=== PATIENT | female | born 1955 | race African-American/Black ===

== ENCOUNTER 2023-08-22 11:46 | Inpatient (IN) | payer OTHER, MEDICAID ==
[~2023-08-22] VITALS: Ht 162.6 cm; Wt 79.5 kg
[2023-08-22] VITALS (8 sets, daily range): BP systolic 139–169; BP diastolic 71–86; PULSE 90–103; RESP 17–24; TEMP 98.3–98.9; O2SAT 90–95
[2023-08-22 13:20] LABS: Basophils # (auto) 0 10 ^3/uL (0-0.2); Eosinophils # (auto) 0.3 10 ^3/uL (0-0.8); Eosinophils % (auto) 3.8 % (0.0-7.0); Lymphocytes # (auto) 1.8 10 ^3/uL (0.4-5.4); Mean Corpuscular Hgb Conc. 28.9 g/dL (32.0-36.0); Monocytes # (auto) 0.7 10 ^3/uL (0-1.3); Nucleated Red Blood Cells % 0.1 %; White Blood Cell 6.7 10^3/uL (4.4-10.8)
[2023-08-22 13:22] LABS: Basophils % (auto) 0.3 % (0.0-2.0); Hematocrit 22.3 % (36.0-46.0); Lymphocytes % (auto) 26.9 % (10.0-50.0); Mean Corpuscular Hemoglobin 19.5 pg (28.0-32.0); Mean Corpuscular Volume 67.6 fL (80.0-100.0); Monocytes % (auto) 11.1 % (0.0-12.0); Neutrophils # (auto) 3.9 10 ^3/uL (1.6-8.6); Neutrophils % (auto) 57.9 % (37.0-80.0); Red Cell Distribution Width 19.2 % (11.8-14.3)
[2023-08-22] MEDS ORDERED: IPRATROPIUM BROM 0.5 MG/2.5ML INH SOL NEB ONE (13:30)
[2023-08-22] MEDS ORDERED: ALBUTEROL SULF 2.5 MG/0.5ML(0.5%) NEB SOLN NEB ONE (13:30)
[2023-08-22] MEDS ORDERED: methylPREDNISolone SOD SUCC 125 MG/2 ML VL IV ONE (13:30)
[2023-08-22 13:31] LABS: Hemoglobin 6.4 g/dL (12.2-16.2)
[2023-08-22 13:42] LABS: Alkaline Phosphatase 163 U/L (46-116); Anion Gap 5 (5-15); Aspartate Aminotransferase < 8 U/L (13-40); Bilirubin, Total 0.2 mg/dL (0.2-1.0); Carbon Dioxide 28 mmol/L (20-30); Chloride 109 mmol/L (98-107); Glucose 92 mg/dL (74-106); Potassium 3.6 mmol/L (3.5-5.1); Sodium 142 mmol/L (136-145); Total Protein 6.7 g/dL (5.7-8.2)
[2023-08-22 13:54] LABS: Alanine Aminotransferase < 9 U/L (7-40); BUN/Creatinine Ratio 7.5 (10.0-20.0); Blood Urea Nitrogen < 5 mg/dL (9-23)
[2023-08-22 14:22] LABS: Base Excess 1.9 mmol/L (-2.0-2.0)
[2023-08-22] MEDS ORDERED: ACETAMINOPHEN 325 MG TAB PO PRN (20:45)
[2023-08-22] MEDS ORDERED: HYDROcodone-ACET 5/325MG TAB PO PRN (20:45)
[2023-08-22] MEDS ORDERED: ACETAMINOPHEN 325 MG TAB PO ONE (20:45)
[2023-08-22] MEDS ORDERED: ONDANSETRON HCL 4 MG/2 ML VIAL IV PRN (20:45)
[2023-08-22 22:03] LABS: INR 1.11 (0.9-1.15); Prothrombin Time 11.6 sec (9.3-11.8)
[2023-08-22] MEDS: PANTOPRAZOLE 40 MG/10 ML VIAL INJ IV SCH (22:09)
[2023-08-22] MEDS: hydrALAZINE HCL 10 MG TAB PO PRN (22:10)
[2023-08-23] VITALS (11 sets, daily range): BP systolic 146–178; BP diastolic 62–82; PULSE 81–102; RESP 16–27; TEMP 97.7–98.2; O2SAT 95–99
[2023-08-23] MEDS ORDERED: IOHEXOL 350 MG/ML 100ML IJ ONE (01:55)
[2023-08-23 03:40] LABS: Hemoglobin 9.4 g/dL (12.2-16.2); Mean Corpuscular Hemoglobin 21.9 pg (28.0-32.0); Red Blood Cells 4.31 10^6/uL (4.0-5.20)
[2023-08-23 03:41] LABS: Hematocrit 31.2 % (36.0-46.0); Mean Corpuscular Hgb Conc. 30.3 g/dL (32.0-36.0); Mean Corpuscular Volume 72.4 fL (80.0-100.0); White Blood Cell 9.4 10^3/uL (4.4-10.8)
[2023-08-23 03:46] LABS: Red Cell Distribution Width 23.8 % (11.8-14.3)
[2023-08-23 03:48] LABS: Basophils % (manual) 0 (0.0-2.0); Blast Cells 0; Metamyelocytes % 0; Myelocytes % 0; Promyelocytes % 0; Reactive Lymphocytes 0
[2023-08-23 06:11] LABS: Anisocytosis Moderate; Band Neutrophils % (manual) 2; Eosinophils % (manual) 1 (0-7); Hypochromia Moderate; Lymphocytes % (manual) 12 (10.0-50.0); Monocytes % (manual) 4 (0-12); Platelet Estimate Adequate
[2023-08-23 06:12] LABS: Large Platelets FEW; Stomatocytes Few; Target Cell D
[2023-08-23] MEDS: ACETAMINOPHEN 325 MG TAB PO PRN (06:43)
[2023-08-23] MEDS: hydrALAZINE HCL 10 MG TAB PO PRN (06:43)
[2023-08-23 07:00] LABS: Eosinophils # (auto) 0 10 ^3/uL (0-0.8); Monocytes # (auto) 0.4 10 ^3/uL (0-1.3); Neutrophils # (auto) 7.9 10 ^3/uL (1.6-8.6)
[2023-08-23 07:03] LABS: Basophils # (auto) 0 10 ^3/uL (0-0.2); Basophils % (auto) 0.2 % (0.0-2.0); Hematocrit 30.4 % (36.0-46.0); Hemoglobin 9.4 g/dL (12.2-16.2); Lymphocytes # (auto) 1.4 10 ^3/uL (0.4-5.4); Lymphocytes % (auto) 14.1 % (10.0-50.0); Mean Corpuscular Hemoglobin 22.1 pg (28.0-32.0); Mean Corpuscular Hgb Conc. 30.8 g/dL (32.0-36.0); Mean Corpuscular Volume 71.8 fL (80.0-100.0); Monocytes % (auto) 4.3 % (0.0-12.0); Neutrophils % (auto) 81.4 % (37.0-80.0); Nucleated Red Blood Cells % 0.2 %; Red Blood Cells 4.24 10^6/uL (4.0-5.20); White Blood Cell 9.8 10^3/uL (4.4-10.8)
[2023-08-23 07:28] LABS: Red Cell Distribution Width 24.1 % (11.8-14.3)
[2023-08-23] MEDS: HYDROcodone-ACET 10/325MG TAB PO PRN (08:05)
[2023-08-23] MEDS: PANTOPRAZOLE 40 MG/10 ML VIAL INJ IV SCH ×2 (10:09→21:06)
[2023-08-23 10:21] LABS: Platelet Estimate Adequate
[2023-08-23 10:22] LABS: Anisocytosis Moderate; Hypochromia Moderate
[2023-08-23 12:00] LABS: Basophils # (auto) 0 10 ^3/uL (0-0.2); Eosinophils # (auto) 0 10 ^3/uL (0-0.8); Hemoglobin 8.8 g/dL (12.2-16.2); Lymphocytes # (auto) 1.6 10 ^3/uL (0.4-5.4); Nucleated Red Blood Cells % 0.1 %; White Blood Cell 12.2 10^3/uL (4.4-10.8)
[2023-08-23 12:02] LABS: Basophils % (auto) 0.2 % (0.0-2.0); Hematocrit 29.4 % (36.0-46.0); Lymphocytes % (auto) 13.2 % (10.0-50.0); Mean Corpuscular Hemoglobin 21.4 pg (28.0-32.0); Mean Corpuscular Hgb Conc. 29.9 g/dL (32.0-36.0); Mean Corpuscular Volume 71.6 fL (80.0-100.0); Monocytes # (auto) 1.1 10 ^3/uL (0-1.3); Monocytes % (auto) 9.3 % (0.0-12.0); Neutrophils # (auto) 9.4 10 ^3/uL (1.6-8.6); Neutrophils % (auto) 77.3 % (37.0-80.0); Red Blood Cells 4.11 10^6/uL (4.0-5.20)
[2023-08-23 12:04] LABS: Red Cell Distribution Width 24.3 % (11.8-14.3)
[2023-08-23 18:28] LABS: Hematocrit 32.6 % (36.0-46.0); Hemoglobin 9.6 g/dL (12.2-16.2); Mean Corpuscular Hemoglobin 21.6 pg (28.0-32.0); Mean Corpuscular Hgb Conc. 29.4 g/dL (32.0-36.0); Mean Corpuscular Volume 73.3 fL (80.0-100.0); Red Blood Cells 4.45 10^6/uL (4.0-5.20); White Blood Cell 13.5 10^3/uL (4.4-10.8)
[2023-08-23] MEDS: FERROUS SULFATE 300 MG/5 ML ORAL LIQ PO SCH (19:12)
[2023-08-23] MEDS ORDERED: LISI10TA34 PO (19:41)
[2023-08-23] MEDS ORDERED: BUSP15TA90 PO (19:41)
[2023-08-23] MEDS ORDERED: HYDR-4072 PO (19:41)
[2023-08-23] MEDS ORDERED: ALBU108A5 INH (19:41)
[2023-08-23] MEDS ORDERED: ATEN25TA PO (19:41)
[2023-08-23] MEDS ORDERED: DULO1CAP6 PO (19:41)
[2023-08-23] MEDS ORDERED: QUET300T24 PO (19:41)
[2023-08-23] MEDS ORDERED: NIFE1TAB31 PO (19:41)
[2023-08-23] MEDS: ALBUTEROL SULF 2.5 MG/0.5ML(0.5%) NEB SOLN NEB PRN (21:13)
[2023-08-23 21:51] LABS: Band Neutrophils % (manual) 0; Basophils % (manual) 0 (0.0-2.0); Blast Cells 0; Eosinophils % (manual) 0 (0-7); Metamyelocytes % 0; Myelocytes % 0; Promyelocytes % 0; Reactive Lymphocytes 0
[2023-08-23 21:52] LABS: Lymphocytes % (manual) 20 (10.0-50.0); Monocytes % (manual) 11 (0-12)
[2023-08-23 21:53] LABS: Anisocytosis Slight; Hypochromia Moderate; Platelet Estimate Adequate
[2023-08-24] VITALS (9 sets, daily range): BP systolic 142–143; BP diastolic 70–73; PULSE 73–99; RESP 16–20; TEMP 97.4–98.6; O2SAT 94–100
[2023-08-24] MEDS: ACETAMINOPHEN 325 MG TAB PO PRN (04:57)
[2023-08-24 06:54] LABS: Chloride 105 mmol/L (98-107); Potassium 3.8 mmol/L (3.5-5.1); Sodium 141 mmol/L (136-145)
[2023-08-24 06:55] LABS: Anion Gap 5 (5-15); Calcium 8.7 mg/dL (8.5-10.1); Carbon Dioxide 31 mmol/L (20-30)
[2023-08-24 07:00] LABS: BUN/Creatinine Ratio 7.8 (10.0-20.0); Basophils # (auto) 0 10 ^3/uL (0-0.2); Blood Urea Nitrogen 5 mg/dL (9-23); Eosinophils # (auto) 0.1 10 ^3/uL (0-0.8); Eosinophils % (auto) 0.5 % (0.0-7.0); Glucose 90 mg/dL (74-106); Hemoglobin 8.5 g/dL (12.2-16.2); Lymphocytes # (auto) 2.4 10 ^3/uL (0.4-5.4)
[2023-08-24 07:02] LABS: Basophils % (auto) 0.3 % (0.0-2.0); Hematocrit 28.6 % (36.0-46.0); Lymphocytes % (auto) 19.7 % (10.0-50.0); Mean Corpuscular Hemoglobin 21.4 pg (28.0-32.0); Mean Corpuscular Hgb Conc. 29.8 g/dL (32.0-36.0); Mean Corpuscular Volume 71.9 fL (80.0-100.0); Monocytes # (auto) 1.3 10 ^3/uL (0-1.3); Monocytes % (auto) 10.4 % (0.0-12.0); Neutrophils # (auto) 8.5 10 ^3/uL (1.6-8.6); Neutrophils % (auto) 69.1 % (37.0-80.0); Nucleated Red Blood Cells % 0.2 %; Red Blood Cells 3.97 10^6/uL (4.0-5.20); White Blood Cell 12.3 10^3/uL (4.4-10.8)
[2023-08-24 07:05] LABS: Red Cell Distribution Width 23.7 % (11.8-14.3)
[2023-08-24 07:07] LABS: INR 1.09 (0.9-1.15); Partial Thromboplastin Time 27.7 SEC (24.5-34.5); Prothrombin Time 11.4 sec (9.3-11.8)
[2023-08-24] MEDS: PANTOPRAZOLE 40 MG/10 ML VIAL INJ IV SCH (08:19)
[2023-08-24] MEDS: FERROUS SULFATE 300 MG/5 ML ORAL LIQ PO SCH (08:19)
[2023-08-24] MEDS ORDERED: ASCORBIC ACID 500 MG TAB PO SCH (10:00)
[2023-08-24] MEDS: HYDROcodone-ACET 10/325MG TAB PO PRN (11:00)
[2023-08-24] MEDS ORDERED: FER300LQ PO (12:21)
[2023-08-24] MEDS ORDERED: ASCO500T11 PO (12:21)
[2023-08-24] MEDS: ALBUTEROL SULF 2.5 MG/0.5ML(0.5%) NEB SOLN NEB PRN ×2 (12:56→14:33)
== END 2023-08-24 15:50 | disposition home or self-care (01) | DRG 812 ==
LOC: ER 11:46 → TELE 20:32 → TELE-CENTR 08-23 18:33
PROVIDERS: ADMIT Nurse Practitioner Family; ATTEND Nurse Practitioner Family
PROC: 30233N1 Transfusion of Nonautologous Red Blood Cells into Peripheral Vein, Percutaneous Approach (ICD-10-PCS; principal; 2023-08-22)
DX: D50.9 Iron deficiency anemia, unspecified (principal); I10 Essential (primary) hypertension; G89.29 Other chronic pain; J44.9 Chronic obstructive pulmonary disease, unspecified; Z80.1 Family history of malignant neoplasm of trachea, bronchus and lung; Z82.49 Family history of ischemic heart disease and other diseases of the circulatory system; Z85.038 Personal history of other malignant neoplasm of large intestine; Z87.891 Personal history of nicotine dependence
CPT/HCPCS: 36415; 36430; 71046; 71275; 80048; 80053; 83605; 83880; 84484; 85007; 85025; 85027; 85379; 85610; 85730; 86850; 86900; 86901; 86920; 93005; 94640; 96374; C9113; G0378

== ENCOUNTER 2024-10-31 02:42 | Inpatient (IN) | payer OTHER, MEDICAID ==
[2024-10-31] VITALS (14 sets, daily range): BP systolic 137–151; BP diastolic 67–82; PULSE 87–101; RESP 16–20; TEMP 98.8–100.5; O2SAT 94–100
[~2024-10-31] VITALS: Ht 160 cm; Wt 72.8 kg
[~2024-10-31 02:42] MED LIST: ALBU108A5 INH; ASCO500T11 PO; ATEN25TA PO; BUSP15TA90 PO; DULO1CAP6 PO; FER300LQ PO; HYDR-4072 PO; LISI10TA34 PO; NIFE1TAB31 PO; QUET300T24 PO
--- NOTE | 2024-10-31 02:55 | ED.PDOC ---
SOB-HPI HPI Comments 69-year-old female who came to ER via EMS for shortness of breath. For the past few days, patient has been having cough with shortness of breath, which is progressively worsening despite nebulizations at home. Does have history of hypertension, COPD, asthma and anemia. Patient was saturating 84% on room air on scene. Chief Complaint: Shortness of Breath Time Seen by MD: 02:54 Primary Care Provider: GEORGE Cee notes: Court Reporter Notes Information Source: Patient, Emergency Med Personnel Mode of Arrival: EMS Severity: Moderate Timing: Days Duration: Intermittent Context: At Rest, With Light Exertion PE Risk Factors: None History of: Asthma, COPD Prehospital treatment: Oxygen Modifying Factors: Nothing Associated Signs and Symptoms: Cough Quality: Tightness Radiation: No Radiation Location: Chest (R), Chest (L) If cough with SOB: Non-Productive Past Medical History PAST MEDICAL HISTORY: Anemia, Asthma, COPD, HTN Surgical History: Denies all surgeries ENVELOPE STUFFER History: Denies all ENVELOPE STUFFER Hx Family History Family History: Reviewed,noncontributory to illness Social History Smoker: Non-Smoker Alcohol: Denies ETOH Use Drugs: Denies Drug Use Lives In: Home Constitutional: denies: chills, diaphoresis, fatigue, fever, malaise, sweats, weakness, others EENTM: denies: blurred vision, double vision, ear bleeding, ear discharge, ear drainage, ear pain, ear ringing, eye pain, eye redness, hearing loss, mouth pain, mouth swelling, nasal discharge, nose bleeding, nose congestion, nose pain, photophobia, tearing, throat pain, throat swelling, voice changes, others Respiratory: reports: cough, SOB at rest, shortness of breath; denies: hemoptysis, orthopnea, SOB with excertion, stridor, wheezing, others Cardiovascular: denies: chest pain, dizzy spells, diaphoresis, Dyspnea on exertion, edema, irregular heart beat, left arm pain, lightheadedness, p alpitations, PND, syncope, others Gastrointestinal: denies: abdomen distended, abdominal pain, blood streaked bowels, constipated, diarrhea, dysphagia, difficulty swallowing, hematemesis, melena, nausea, poor appetite, poor fluid intake, rectal bleeding, rectal pain, vomiting, others Genitourinary: denies: abnormal vagina bleeding, burning, dyspareunia, dysuria, flank pain, frequency, hematuria, incontinence, pain, , vagina discharge, urgency, others Neurological: denies: dizziness, fainting, headache, left sided numbness, left sided weakness, numbness, paresthesia, pre-existing deficit, right sided numbness, right sided weakness, seizure, speech problems, tingling, tremors, weakness, others Musculoskeletal: denies: back pain, gout, joint pain, joint swelling, muscle pain, muscle stiffness, neck pain, others Integumetry: denies: bruises, change in color, change in hair/nails, dryness, laceration, lesions, lumps, rash, wounds, others Allergic/Immunocompromised: denies: Difficulty Healing, Frequent Infections, Hives, Itching, others Hematologic/Lymphatic: denies: anemia, blood clots, easy bleeding, easy bruising, swollen glands, others Endocrine: denies: excessive hunger, excessive sweating, excessive thirst, excessive urination, flushing, intolerance to cold, intolerance to heat, unexplained weight gain, unexplained weight loss, others Psychiatric: denies: anxiety, bipolar disorder, depression, hopeless, panic disorder, schizophrenia, sleepless, suicidal, others Physical Exam General Appearance: No Apparent Distress, Normal HEENT: Normal ENT Inspection, Pharynx Normal, TMs Normal Neck: Full Range of Motion, Non-Tender, Normal, Normal Inspection Respiratory: Chest Non-Tender, Lungs Clear, No Accessory Muscle Use, No Respiratory Distress, Normal Breath Sounds Cardiovascular: No Edema, No JVD, No Murmur, No Gallop, Normal Peripheral Pulses, Regular Rate/Rhythm Breast Exam: Deferred Gastrointestinal: No Organomegaly, Non Tender, No Pulsatile Mass, Normal Bowel Sounds, Soft Genitalia: Deferred Pelvic: Deferred Rectal: Deferred Extremities: No calf tenderness, Normal capillary refill, Normal inspection, Normal range of motion, Non-tender, No pedal edema Musculoskeletal : Apperance: Normal Neurologic: Alert, surgical technologist II-XII nml as Tested, No Motor Deficits, Normal Affect, Normal Mood, No Sensory Deficits Cerebellar Function: Normal Reflexes: Normal Skin: Dry, Normal Color, Warm Lymphatic: No Adenopathy Was a procedure done? Was a procedure done?: No Differential Dx Differential Diagnosis: Asthma, Bronchitis, COPD, Respiratory Distress, Pharyngitis, URI X-Ray, Labs, Meds, VS Vital Signs Date Time Temp Pulse Resp B/P (MAP) Pulse Ox O2 Delivery O2 Flow Rate FiO2 10/31/24 04:02 100.2 10/31/24 03:30 100.1 101 26 142/81 (101) 91 100.1 10/31/24 03:14 20 92 Nasal Cannula* 1 10/31/24 03:02 100.6 10/31/24 02:48 100.5 102 25 153/73 (99) 94 10/31/24 02:46 101 Lab Test 10/31/24 03:55 10/31/24 03:05 10/31/24 03:00 Range/Units Troponin I High Sensitivity 5 5 </=34 ng/L Influenza Type A Antigen Positive Negative Influenza Type B Antigen Negative Negative SARS-CoV-2 Antigen (Rapid) Negative NEGATIVE White Blood Count 6.9 4.4-10.8 10^3/uL Red Blood Count 4.90 4.0-5.20 10^6/uL Hemoglobin 13.1 12.2-16.2 g/dL Hematocrit 41.3 36.0-46.0 % Mean Corpuscular Volume 84.2 80.0-100.0 fL Mean Corpuscular Hemoglobin 26.7 L 28.0-32.0 pg Mean Corpuscular Hemoglobin Concent 31.7 L 32.0-36.0 g/dL Red Cell Distribution Width 14.6 H 11.8-14.3 % Platelet Count 231 140-450 10^3/uL Mean Platelet Volume 7.5 6.9-10.8 fL Neutrophils (%) (Auto) 74.2 37.0-80.0 % Lymphocytes (%) (Auto) 9.9 L 10.0-50.0 % Monocytes (%) (Auto) 15.5 H 0.0-12.0 % Eosinophils (%) (Auto) 0.1 0.0-7.0 % Basophils (%) (Auto) 0.3 0.0-2.0 % Neutrophils # (Auto) 5.1 1.6-8.6 10 ^3/uL Lymphocytes # (Auto) 0.7 0.4-5.4 10 ^3/uL Monocytes # (Auto) 1.1 0-1.3 10 ^3/uL Eosinophils # (Auto) 0 0-0.8 10 ^3/uL Basophils # (Auto) 0 0-0.2 10 ^3/uL Nucleated Red Blood Cells 0.1 % Sodium Level 136 136-145 mmol/L Potassium Level 4.1 3.5-5.1 mmol/L Chloride Level 101 98-107 mmol/L Carbon Dioxide Level 27 20-31 mmol/L Anion Gap 8 5-15 Blood Urea Nitrogen 7 L 9-23 mg/dL Creatinine 0.70 0.550-1.02 mg/dL Glomerular Filtration Rate Calc 94 >90 mL/min BUN/Creatinine Ratio 10.0 10.0-20.0 Serum Glucose 108 H 74-106 mg/dL Lactic Acid Level Pending Calcium Level 10.3 8.7-10.4 mg/dL Magnesium Level 2.0 1.6-2.6 mg/dL Total Bilirubin 0.2 0.2-1.0 mg/dL Aspartate Amino Transferase (AST) 30 13-40 U/L Alanine Aminotransferase (ALT) 15 7-40 U/L Alkaline Phosphatase 177 H 46-116 U/L B-Type Natriuretic Peptide 277.88 0-100 pg/mL Total Protein 7.8 5.7-8.2 g/dL Albumin 4.7 3.2-4.8 g/dL Current Medications Medications (Trade) Dose Ordered Sig/Ranjith Route Start Time Stop Time Status Last Admin Albuterol (Ventolin Medneb) 5 mg ONCE ONCE [facility] 10/31/24 03:00 10/31/24 03:01 ID 10/31/24 03:19 Ipratropium [place] (Atrovent Medneb) 0.5 mg ONCE ONCE [facility] 10/31/24 03:00 10/31/24 03:01 ID 10/31/24 03:19 Acetaminophen (Tylenol Tablet) 1,000 mg ONCE ONCE PO 10/31/24 03:00 10/31/24 03:01 DC 10/31/24 03:02 Time of 1ST Reevaluation: 02:52 Reevaluation 1ST: Unchanged Time of 2ND Reevaluation: 05:03 Reevaluation 2ND: Unchanged (requiring oxygen, will admit for supportive care and further workup) Patient Education/Counseling: Diagnosis, Treatment Family Education/Counseling: No Family Present Departure 1 Departure Time of Disposition: 05:02 Impression: Primary Impression: Respiratory failure with hypoxia Additional Impression: Influenza A Disposition: 09 ADMITTED INPATIENT Condition: Guarded Critical Care Note Critical Care Time?: Yes (35 min-critical care time only) Critical care comment: Shortness of breath Stability Stability form required: No Heart Score Heart Score: Heart Score Response (Comments) Value History Moderate Suspicious 1 EKG Repolarization Disturb 1 Age >65 2 Risk Factors 1 or 2 risk factors 1 Troponin Normal limit 0 Total 5 I personally scribed for CHRISTINA YBARRA MD ([email or web address]) on 10/31/24 at 02:55. Electronically submitted by Luisito Martinez ([email or web address]). CHRISTINA YBARRA MD Oct 31, 2024 02:55
[2024-10-31] MEDS: ACETAMINOPHEN 325 MG TAB PO ONE (03:02)
[2024-10-31] MEDS: IPRATROPIUM BROM 0.5 MG/2.5ML INH SOL HHN ONE (03:19)
[2024-10-31] MEDS: ALBUTEROL SULF 2.5 MG/0.5ML(0.5%) NEB SOLN HHN ONE (03:19)
[2024-10-31 03:21] LABS: Basophils # (auto) 0 10 ^3/uL (0-0.2); Basophils % (auto) 0.3 % (0.0-2.0); Eosinophils # (auto) 0 10 ^3/uL (0-0.8); Lymphocytes # (auto) 0.7 10 ^3/uL (0.4-5.4); Platelet Count (auto) 231 10^3/uL (140-450); White Blood Cell 6.9 10^3/uL (4.4-10.8)
[2024-10-31 03:22] LABS: Eosinophils % (auto) 0.1 % (0.0-7.0); Hematocrit 41.3 % (36.0-46.0); Hemoglobin 13.1 g/dL (12.2-16.2); Lymphocytes % (auto) 9.9 % (10.0-50.0); Mean Corpuscular Hemoglobin 26.7 pg (28.0-32.0); Mean Corpuscular Hgb Conc. 31.7 g/dL (32.0-36.0); Mean Corpuscular Volume 84.2 fL (80.0-100.0); Monocytes # (auto) 1.1 10 ^3/uL (0-1.3); Monocytes % (auto) 15.5 % (0.0-12.0); Neutrophils # (auto) 5.1 10 ^3/uL (1.6-8.6); Neutrophils % (auto) 74.2 % (37.0-80.0); Nucleated Red Blood Cells % 0.1 %; Red Cell Distribution Width 14.6 % (11.8-14.3)
[2024-10-31 03:36] LABS: COVID19 ANTIGEN SOFIA FIA NEGATIVE (NEGATIVE)
[2024-10-31 03:37] LABS: Rapid Influenza B Negative (Negative)
[2024-10-31 03:39] LABS: Rapid Influenza A Positive (Negative)
[2024-10-31 03:48] LABS: Alanine Aminotransferase 15 U/L (7-40); Albumin 4.7 g/dL (3.2-4.8); Anion Gap 8 (5-15); Aspartate Aminotransferase 30 U/L (13-40); Calcium 10.3 mg/dL (8.7-10.4); Carbon Dioxide 27 mmol/L (20-31); Chloride 101 mmol/L (98-107); Potassium 4.1 mmol/L (3.5-5.1); Total Protein 7.8 g/dL (5.7-8.2)
[2024-10-31 03:50] LABS: Alkaline Phosphatase 177 U/L (46-116); Bilirubin, Total 0.2 mg/dL (0.2-1.0); Blood Urea Nitrogen 7 mg/dL (9-23); Glucose 108 mg/dL (74-106); Sodium 136 mmol/L (136-145)
[2024-10-31] MEDS: cefTRIAXone 1GM/50ML D5W 50 ML IV ONE (04:45)
--- NOTE | 2024-10-31 05:08 | DVH ---
CHEST RADIOGRAPH Indication: sob Technique: Single frontal view of the chest was obtained COMPARISON: None FINDINGS: Lines and Tubes: None Lungs: Increased interstitial prominence. Pleura: No effusion. No pneumothorax. Cardiomediastinal contours: Unremarkable Bones: Unremarkable IMPRESSION: Mild congestion
[2024-10-31] MEDS ORDERED: NITROGLYCERIN 0.4 MG SL TAB SL PRN (06:00)
[2024-10-31] MEDS ORDERED: ONDANSETRON HCL 4 MG/2 ML VIAL IV PRN (06:00)
[2024-10-31] MEDS ORDERED: DOCUSATE SOD 100 MG CAP PO PRN (06:00)
[2024-10-31] MEDS ORDERED: MORPHINE SULFATE INJ 2 MG/ml SYRG IV PRN (06:00)
[2024-10-31] MEDS: IPRATROPIUM BROM 0.5 MG/2.5ML INH SOL NEB SCH (06:42)
[2024-10-31] MEDS: ALBUTEROL SULF 2.5 MG/0.5ML(0.5%) NEB SOLN NEB SCH (06:42)
[2024-10-31] MEDS: SODIUM CHLORIDE 0.9% 1,000 ML IV SCH (06:45)
--- NOTE | 2024-10-31 06:59 | DVHHP2 ---
RAUL RODRIGUEZ LOCAL [employer]IVER 10/31/24 0659: History of Present Illness Reason for Visit: Generalized bodyaches History of Present Illness 69-year-old female Past medical history of hypertension, COPD, asthma presents with generalized bodyaches, cough, congestion, And shortness of breath Worsening times one week. Patient also endorsed the generalized weakness. When EMS encountered the patient her oxygen saturation was 84% On room air. Patient daughter endorsed she had tried multiple Nebulizer treatments with no relief. At this time patient denies business, chest pain, nausea, vomiting,Abdominal pain,Diarrhea, hematemesis, hematochezia. endorsed soft bowel movements. Cardiovascular: CAD, HTN Pulmonary: Asthma, COPD Smoke: 1 pack per day ALCOHOL: none Drugs: None Lives: with Family Review of Systems Constitutional: Yes: Weakness, Malaise; No: Fever, Chills, Sweats, Other Eyes: No: Pain, Vision change, Conjunctivae inflammation, Eyelid inflammation, Other, Redness ENT: No: Ear pain, Ear discharge, Nose pain, Nose discharge, Nose congestion, Mouth pain, Mouth swelling, Throat pain, Throat swelling, Other Respiratory: Cough, Shortness of breath; No: Dry, SOB with excertion, Wheezing, Hemoptysis, Pleuritic Pain, Sputum, Wheezing, Other Cardiovascular: No: Chest Pain, Palpitations, Orthopnea, Paroxysmal Noc. Dyspnea, Edema, Lt Headedness, Other Gastrointestinal: No: Nausea, Vomiting, Abdominal Pain, Diarrhea, Constipation, Melena, Hematochezia, Other Genitourinary: No Dysuria, No Frequency, No Incontinence, No Hematuria, No Retention, No Other Musculoskeletal: No: other, neck pain, shoulder pain, arm pain, back pain, hand pain, leg pain, foot pain Skin: No: Rash, Lesions, Jaundice, Bruising, Other Neurological: No: Weakness, Numbness, Incoordination, Change in speech, Confusion, Seizures, Other Allergies: Coded Allergies: NO KNOWN ALLERGIES (Unverified , 08/22/23) Medications Current Medications Medications Dose Ordered Sig/Ranjith Route Start Time Stop Time Status Last Admin Dose Admin Sodium Chloride 1,000 ml @ 75 mls/hr [id number] IV 10/31/24 06:00 10/31/24 19:19 Docusate Sodium 100 mg BIDPRN PRN PO 10/31/24 06:00 Acetaminophen 650 mg Q6HP PRN PO 10/31/24 06:00 Ondansetron HCl 4 mg Q4HP PRN IV 10/31/24 06:00 Enoxaparin Sodium 40 mg DAILY SC 10/31/24 10:00 Nitroglycerin 0.4 mg Q5MINP PRN SL 10/31/24 06:00 Morphine Sulfate 2 mg Q30M PRN IV 10/31/24 06:00 Albuterol 2.5 mg Q6HR NEB 10/31/24 06:00 10/31/24 06:42 2.5 MG Ipratropium [place] 0.5 mg Q6HR NEB 10/31/24 06:00 10/31/24 06:42 0.5 MG Nifedipine 30 mg DAILY PO 10/31/24 10:00 Guaifenesin/ Dextromethorphan 10 ml Q4HPRN PRN PO 10/31/24 06:00 Oseltamivir Phosphate 30 mg BID PO 11/01/24 10:00 11/05/24 10:01 Exam Vital Signs Vital Signs Date Time Temp Pulse Resp B/P (MAP) Pulse Ox O2 Delivery O2 Flow Rate FiO2 10/31/24 06:51 93 18 98 10/31/24 06:46 100.3 137/67 4.0 36 100.3 10/31/24 06:45 Nasal Cannula General Appearance: Alert, Oriented X3, Cooperative HEENT: Atraumatic, PERRLA, EOMI Respiratory: Clear to auscultation, Other (Diminished bilaterally) Cardiovascular: Regular rate, Normal S1, Normal S2 Abdominal: Normal bowel sounds, Soft, No tenderness Extremities: No cyanosis, No edema Skin: No rashes, No breakdown Neuro: Normal speech, Strength at 5/5 X4 ext Psych/Mental Status: Mental status NL, Mood NL Labs/Xrays Labs Test 10/31/24 05:48 10/31/24 03:55 10/31/24 03:05 10/31/24 03:00 Range/Units Lactic Acid Level 1.2 0.4-2.0 mmol/L Troponin I High Sensitivity 5 </=34 ng/L Influenza Type A Antigen Positive Negative Influenza Type B Antigen Negative Negative SARS-CoV-2 Antigen (Rapid) Negative NEGATIVE White Blood Count 6.9 4.4-10.8 10^3/uL Red Blood Count 4.90 4.0-5.20 10^6/uL Hemoglobin 13.1 12.2-16.2 g/dL Hematocrit 41.3 36.0-46.0 % Mean Corpuscular Volume 84.2 80.0-100.0 fL Mean Corpuscular Hemoglobin 26.7 L 28.0-32.0 pg Mean Corpuscular Hemoglobin Concent 31.7 L 32.0-36.0 g/dL Red Cell Distribution Width 14.6 H 11.8-14.3 % Platelet Count 231 140-450 10^3/uL Mean Platelet Volume 7.5 6.9-10.8 fL Neutrophils (%) (Auto) 74.2 37.0-80.0 % Lymphocytes (%) (Auto) 9.9 L 10.0-50.0 % Monocytes (%) (Auto) 15.5 H 0.0-12.0 % Eosinophils (%) (Auto) 0.1 0.0-7.0 % Basophils (%) (Auto) 0.3 0.0-2.0 % Neutrophils # (Auto) 5.1 1.6-8.6 10 ^3/uL Lymphocytes # (Auto) 0.7 0.4-5.4 10 ^3/uL Monocytes # (Auto) 1.1 0-1.3 10 ^3/uL Eosinophils # (Auto) 0 0-0.8 10 ^3/uL Basophils # (Auto) 0 0-0.2 10 ^3/uL Nucleated Red Blood Cells 0.1 % Sodium Level 136 136-145 mmol/L Potassium Level 4.1 3.5-5.1 mmol/L Chloride Level 101 98-107 mmol/L Carbon Dioxide Level 27 20-31 mmol/L Anion Gap 8 5-15 Blood Urea Nitrogen 7 L 9-23 mg/dL Creatinine 0.70 0.550-1.02 mg/dL Glomerular Filtration Rate Calc 94 >90 mL/min BUN/Creatinine Ratio 10.0 10.0-20.0 Serum Glucose 108 H 74-106 mg/dL Calcium Level 10.3 8.7-10.4 mg/dL Magnesium Level 2.0 1.6-2.6 mg/dL Total Bilirubin 0.2 0.2-1.0 mg/dL Aspartate Amino Transferase (AST) 30 13-40 U/L Alanine Aminotransferase (ALT) 15 7-40 U/L Alkaline Phosphatase 177 H 46-116 U/L B-Type Natriuretic Peptide 277.88 0-100 pg/mL Total Protein 7.8 5.7-8.2 g/dL Albumin 4.7 3.2-4.8 g/dL Assessment/Plan Assessment/Plan Acute on chronic respiratory failure with hypoxia COPD exacerbation Influence a positive Hypertension Plan Admit telemetry Consult pulmonology. Bronchodilators. As needed supplemental O2 to maintain O2 saturation greater Than 93%. RT monitoring. Oral Tamiflu. As needed anti-hypertensive for optimal BP management. Continue home medication after medication reconciliation has been completed. Physical therapy valuation GI ppx Protonix / DVT PPX Lovenox Plan discussed with: Patient, Daughter My Orders Orders - RAUL RODRIGUEZ NP Procedure Category Date Status Time Admit ADMIT 10/31/24 Transmitted 05:47 Code Status CODE 10/31/24 Transmitted 05:47 Vital Signs [facility] 10/31/24 In Process 05:47 Review Orders With NATALIE 10/31/24 In Process Adm. 05:47 Encourage Activity As [facility] 10/31/24 In Process Tolerate 05:47 Consistent DIET 10/31/24 Transmitted Carb(Ccho)Diabetes Breakfast Sodium Chloride 0.9% PHA 10/31/24 In Process 06:00 Oxygen By Face Mask RT 10/31/24 Transmitted 05:47 Docusate Sodium PHA 10/31/24 In Process Capsule (Colace 06:00 Acetaminophen Tablet PHA 10/31/24 In Process (Tylenol Tablet) 06:00 Notify Of Changes [facility] 10/31/24 In Process From Base 05:47 Advance Directive [facility] 10/31/24 In Process 05:47 Basic Metabolic Panel LAB 11/01/24 Verified 05:00 Basic Metabolic Panel LAB 11/02/24 Verified 05:00 Basic Metabolic Panel LAB 11/03/24 Verified 05:00 Basic Metabolic Panel LAB 11/04/24 Verified 05:00 Basic Metabolic Panel LAB 11/05/24 Verified 05:00 Complete Blood Count LAB 11/01/24 Verified 05:00 Complete Blood Count LAB 11/02/24 Verified 05:00 Complete Blood Count LAB 11/03/24 Verified 05:00 Complete Blood Count LAB 11/04/24 Verified 05:00 Complete Blood Count LAB 11/05/24 Verified 05:00 Patient Condition ORDERS 10/31/24 Transmitted 05:47 Allergies [facility] 10/31/24 In Process 05:47 Ondansetron Hcl PHA 10/31/24 In Process (Zofran) 06:00 Enoxaparin Sodium PHA 10/31/24 In Process (Lovenox) 10:00 Sequential NATALIE 10/31/24 In Process Compression Device Nitroglycerin PHA 10/31/24 In Process Sublingual (Ntrostat 06:00 Morphine Sulfate PHA 10/31/24 In Process Injection 06:00 Stat Ekg For Chest NATALIE 10/31/24 In Process Pain 05:47 Notify Of Changes NATALIE 10/31/24 In Process From Base 05:47 Educational Technology Coordinator For NATALIE 10/31/24 In Process 24 Hours 05:47 Emergency Dysrhythmia NATALIE 10/31/24 In Process Protocol 05:47 Rhythm Strips Once NATALIE 10/31/24 In Process Every Shift 05:47 Oxygen By Nasal RT 10/31/24 Transmitted Cannula 05:47 Oseltamivir 75mg PHA 10/31/24 In Process Capsule (Tamiflu 75mg 10:00 Albuterol Medneb PHA 10/31/24 In Process (Ventolin Medneb) 06:00 Ipratropium Medneb PHA 10/31/24 In Process (Atrovent Medneb) 06:00 Nifedipine Er PHA 10/31/24 In Process (Procardia Xl 10:00 *Consult CONS 10/31/24 Transmitted / 05:47 Guaifenesin-Dextromet PHA 10/31/24 In Process Liquid (Robitussin 06:00 Oseltamivir 30mg PHA 11/01/24 In Process Capsule (Tamiflu 30mg 10:00 Date of Service: Oct 31, 2024 Billing Provider: CARLA ABDULLAHI MD Common Visit Codes: NOT BILLABLE CARLA ABDULLAHI MD 10/31/24 1527: Review of Systems Allergies: Coded Allergies: NO KNOWN ALLERGIES (Unverified , 08/22/23) Additional Comments Additional Comments Additional Comments 69-YEAR-OLD FEMALE WITH A KNOWN HISTORY OF COPD, CHRONIC ACTIVE TOBACCO USE DISORDER INITIALLY PRESENTED TO THE HOSPITAL WITH THE INCREASING SHORTNESS A BREATH FOUND TO HAVE 1. ACUTE HYPOXIC RESPIRATORY FAILURE SECONDARY TO ACUTE COPD EXACERBATION 2. ACUTE COPD EXACERBATION 3. INFLUENZA A POSITIVE 4. CHRONIC ACTIVE TOBACCO USE DISORDER -TOBACCO CESSATION COUNSELING, IV SOLU-MEDROL, TAMIFLU O2 SUPPLEMENTATION BREATHING TREATMENT DISCHARGE PLAN RAUL RODRIGUEZ NP Oct 31, 2024 06:59 CARLA ABDULLAHI MD Oct 31, 2024 15:27
[2024-10-31] MEDS: AZITHROMYCIN 500MG/ 250ML 250 ML IV ONE (07:00)
--- NOTE | 2024-10-31 09:13 | DVHINCON2 ---
Date of service: Oct 31, 2024 Referring Physician Rhett Rivero NP Reason for Consultation Acute on chronic hypoxic respiratory failure, COPD exacerbation, influenza A History of Present Illness A 69-year-old woman with past medical history of COPD, asthma, CAD, and hypertension who presents today with generalized body aches, cough, congestion, and shortness of breath, onset 1 week, worsening sx. Patient also complains of generalized weakness. Per EMS, her oxygen saturation was 84% on room air. Daughter states pt had tried multiple nebulizer treatments with no relief. Patient tested positive for influenza A. She was thus admitted for further care and pulmonary consultation is requested for evaluation and management due to the above findings. Review of Systems: 14-point review of systems negative unless otherwise noted above. Past Medical History: COPD, asthma, CAD, and hypertension Past Surgical History: None Medications: Reviewed. Allergies: No known drug allergies. Family History: Lung cancer and hypertension. Social History: Smoker, smokes 1 pack per day. No alcohol or illicit drug use. Family History: FH: lung cancer G8 MOTHER Hypertension G8 SISTER Allergies: Coded Allergies: NO KNOWN ALLERGIES (Unverified , 08/22/23) Home Meds Active Scripts Ferrous Sulfate (Ferrous Sulfate) 300 Mg/5 Ml Sr, 300 MG PO DAILY@DINNER, #1 SYP 1 Refill Prov:MANDY MEJIA MD 08/24/23 Ascorbic Acid (VITAMIN C TABLET) 500 Mg Tb, 500 MG PO DAILY, #30 TAB Prov:MANDY MEJIA MD 08/24/23 Reported Medications Albuterol Sulfate (Albuterol Sulfate Hfa) 108 Mcg/Act Aer, 2 PUFF INH QID 08/23/23 Quetiapine Fumerate (QUETIAPINE FUMARATE) 300 Mg Tab, 1 TAB PO 08/23/23 Duloxetine HCl (Duloxetine HCl) 60 Mg Cap, 1 CAP PO DAILY 08/23/23 Buspirone HCl (Buspirone Hydrochloride) 15 Mg Tab, 1 TAB PO BID 08/23/23 Hydrocodone-Acetaminophen (Hydrocodone/Acetaminophen 10-325 mg) 1 Tab Tab, 1 TAB PO QID PRN for PAIN SCALE 7 THRU 10 08/23/23 Nifedipine (Nifedipine Er) 30 Mg Tab, 30 MG PO DAILY 08/23/23 Lisinopril (Lisinopril) 10 Mg Tab, 1 TAB PO DAILY 08/23/23 Atenolol (Atenolol) 25 Mg Tab, 1 TAB PO DAILY 08/23/23 Current Medications Current Medications Medications (Trade) Dose Ordered Sig/Ranjith Route PRN Reason Start Time Stop Time Status Last Admin Sodium Chloride 1,000 ml @ 75 mls/hr [id number] IV 10/31/24 06:00 10/31/24 19:19 10/31/24 06:45 Docusate Sodium (Colace Capsule) 100 mg BIDPRN PRN PO FOR CONSTIPATION 10/31/24 06:00 Acetaminophen (Tylenol Tablet) 650 mg Q6HP PRN PO PAIN SCALE 1-3 OR TEMP>100.4 10/31/24 06:00 Ondansetron HCl (Zofran) 4 mg Q4HP PRN IV NAUSEA / VOMITING 10/31/24 06:00 Enoxaparin Sodium (Lovenox) 40 mg DAILY SC 10/31/24 10:00 Nitroglycerin (Ntrostat Sublingual) 0.4 mg Q5MINP PRN SL FOR CHEST PAIN 10/31/24 06:00 Morphine Sulfate 2 mg Q30M PRN IV FOR CHEST PAIN 10/31/24 06:00 Albuterol (Ventolin Medneb) 2.5 mg Q6HR NEB 10/31/24 06:00 10/31/24 06:42 Ipratropium [place] (Atrovent Medneb) 0.5 mg Q6HR NEB 10/31/24 06:00 10/31/24 06:42 Nifedipine (Procardia Xl (Time-Release)) 30 mg DAILY PO 10/31/24 10:00 Guaifenesin/ Dextromethorphan (Robitussin-Dm Liquid) 10 ml Q4HPRN PRN PO cough 10/31/24 06:00 Oseltamivir Phosphate (Tamiflu 30MG Capsule) 30 mg BID PO 11/01/24 10:00 11/05/24 10:01 Vital Signs Vital Signs Date Time Temp Pulse Resp B/P (MAP) Pulse Ox O2 Delivery O2 Flow Rate FiO2 10/31/24 06:51 93 18 98 10/31/24 06:46 100.3 137/67 4.0 36 100.3 10/31/24 06:45 Nasal Cannula Physical Exam Gen.: Patient lying in bed in no apparent distress. On supplemental oxygen. Head: Normocephalic, atraumatic. Eyes: EOMI/PERRLA. Ears: Normal hearing. Normal anatomy. Neck/trachea: Trachea midline, supple. Nose: Normal external anatomy. Mouth: Moist mucous membranes. Chest: Decreased air entry bilaterally. No wheezing or rhonchi. Cardiovascular: Positive S1, positive S2. Regular rate and rhythm. Abdomen: Positive bowel sounds in all 4 quadrants. Soft, non-tender, non- distended. : Deferred. Rectal: Deferred. Skin: Warm, dry. Intact. Extremities: 2+ radial pulses bilaterally. No lower extremity edema. Neuro: Awake, alert, oriented x3. No gross motor or sensory deficits. Cranial nerves II through XII intact. Gait not assessed. Labs/Diagnostic Data Labs Test 10/31/24 05:48 10/31/24 03:55 10/31/24 03:05 10/31/24 03:00 Range/Units Lactic Acid Level 1.2 0.4-2.0 mmol/L Troponin I High Sensitivity 5 </=34 ng/L Influenza Type A Antigen Positive Negative Influenza Type B Antigen Negative Negative SARS-CoV-2 Antigen (Rapid) Negative NEGATIVE White Blood Count 6.9 4.4-10.8 10^3/uL Red Blood Count 4.90 4.0-5.20 10^6/uL Hemoglobin 13.1 12.2-16.2 g/dL Hematocrit 41.3 36.0-46.0 % Mean Corpuscular Volume 84.2 80.0-100.0 fL Mean Corpuscular Hemoglobin 26.7 L 28.0-32.0 pg Mean Corpuscular Hemoglobin Concent 31.7 L 32.0-36.0 g/dL Red Cell Distribution Width 14.6 H 11.8-14.3 % Platelet Count 231 140-450 10^3/uL Mean Platelet Volume 7.5 6.9-10.8 fL Neutrophils (%) (Auto) 74.2 37.0-80.0 % Lymphocytes (%) (Auto) 9.9 L 10.0-50.0 % Monocytes (%) (Auto) 15.5 H 0.0-12.0 % Eosinophils (%) (Auto) 0.1 0.0-7.0 % Basophils (%) (Auto) 0.3 0.0-2.0 % Neutrophils # (Auto) 5.1 1.6-8.6 10 ^3/uL Lymphocytes # (Auto) 0.7 0.4-5.4 10 ^3/uL Monocytes # (Auto) 1.1 0-1.3 10 ^3/uL Eosinophils # (Auto) 0 0-0.8 10 ^3/uL Basophils # (Auto) 0 0-0.2 10 ^3/uL Nucleated Red Blood Cells 0.1 % Sodium Level 136 136-145 mmol/L Potassium Level 4.1 3.5-5.1 mmol/L Chloride Level 101 98-107 mmol/L Carbon Dioxide Level 27 20-31 mmol/L Anion Gap 8 5-15 Blood Urea Nitrogen 7 L 9-23 mg/dL Creatinine 0.70 0.550-1.02 mg/dL Glomerular Filtration Rate Calc 94 >90 mL/min BUN/Creatinine Ratio 10.0 10.0-20.0 Serum Glucose 108 H 74-106 mg/dL Calcium Level 10.3 8.7-10.4 mg/dL Magnesium Level 2.0 1.6-2.6 mg/dL Total Bilirubin 0.2 0.2-1.0 mg/dL Aspartate Amino Transferase (AST) 30 13-40 U/L Alanine Aminotransferase (ALT) 15 7-40 U/L Alkaline Phosphatase 177 H 46-116 U/L B-Type Natriuretic Peptide 277.88 0-100 pg/mL Total Protein 7.8 5.7-8.2 g/dL Albumin 4.7 3.2-4.8 g/dL Assessment Impression: Acute on chronic hypoxic respiratory failure COPD exacerbation Influenza A positive Hypertension Nicotine dependence Plan: Supplemental oxygen Titrate to keep O2 sats above 92%. Start Tamiflu course Continue bronchodilators. Continue antibiotics Monitor blood pressure Monitor renal function. Monitor electrolytes. Supplement as necessary. Monitor ins and outs. Smoking cessation discussed for greater than 10 minutes. DVT prophylaxis. Prognosis: Poor given patient's multiple co-morbidities. Rest of plan per hospitalist and other consultants. Thank you, Rhett Rivero NP, for allowing me to participate in this patient's care. Further recommendations will depend on the patient's clinical course. Please do not hesitate to contact me if you have any questions or concerns. This medical document was created using an electronic medical record system with Dragon computerized dictation system. Although these documentations are being carefully reviewed, there may still be some phonetic and typographical changes. The errors are purely typographical, due to imperfection on the software program, and do not reflect any compromise in the patient's medical care. Plan discussed with: Patient, Other (MICHELLE Germain/Ana, [employer] Mat/) TAYLOR MEDRANO MD Oct 31, 2024 09:13
[2024-10-31] MEDS: NIFEdipine ER 30 MG TAB PO SCH (10:05)
[2024-10-31] MEDS: ENOXAPARIN SOD 40 MG/0.4 ML SYRINGE SC SCH (10:05)
[2024-10-31] MEDS: OSELTAMIVIR 75 MG CAP PO ONE (10:40)
[2024-10-31] MEDS: guaiFENesin-DM 100/10mg/5ml SYR PO PRN (10:41)
[2024-10-31] MEDS: ACETAMINOPHEN 325 MG TAB PO PRN (17:02)
[2024-10-31] MEDS: MELATONIN 5 MG TAB PO SCH (22:00)
[2024-11-01] VITALS (17 sets, daily range): BP systolic 101–137; BP diastolic 55–64; PULSE 85–101; RESP 16–21; TEMP 98–99.6; O2SAT 88–100
[2024-11-01 06:05] LABS: Anion Gap 6 (5-15); Carbon Dioxide 28 mmol/L (20-31); Chloride 101 mmol/L (98-107); Potassium 3.7 mmol/L (3.5-5.1)
[2024-11-01 06:06] LABS: Calcium 9.5 mg/dL (8.7-10.4)
[2024-11-01 06:11] LABS: BUN/Creatinine Ratio 12.7 (10.0-20.0); Glucose 84 mg/dL (74-106)
[2024-11-01 06:14] LABS: Blood Urea Nitrogen 8 mg/dL (9-23); Sodium 135 mmol/L (136-145)
[2024-11-01 06:35] LABS: Hematocrit 40.5 % (36.0-46.0); Mean Corpuscular Hemoglobin 26.8 pg (28.0-32.0); Mean Corpuscular Volume 83.7 fL (80.0-100.0); Platelet Count (auto) 226 10^3/uL (140-450); Red Blood Cells 4.84 10^6/uL (4.0-5.20); Red Cell Distribution Width 14.3 % (11.8-14.3)
[2024-11-01 07:06] LABS: Basophils % (manual) 0 (0.0-2.0); Blast Cells 0; Eosinophils % (manual) 0 (0-7); Metamyelocytes % 0; Myelocytes % 0; Promyelocytes % 0; Reactive Lymphocytes 0
[2024-11-01 09:39] LABS: Band Neutrophils % (manual) 3; Lymphocytes % (manual) 22 (10.0-50.0)
[2024-11-01 09:40] LABS: Monocytes % (manual) 13 (0-12); RBC Morphology Normal
[2024-11-01 10:09] LABS: Platelet Estimate Adequate
[2024-11-01] MEDS: OSELTAMIVIR 30 MG CAP PO SCH (10:31)
--- NOTE | 2024-11-01 16:38 | DVHPN2 ---
Subjective Overnight events noted. Patient does not feel much better yet. Reviewed: Care Plan Changes from previous H/P or p: No Changes Eyes: No Pain, No Vision change, No Conjunctivae inflammation, No Eyelid inflammation, No Other, No Redness ENT: No Ear pain, No Ear discharge, No Nose pain, No Nose discharge, No Nose congestion, No Mouth pain, No Mouth swelling, No Throat pain, No Throat swelling, No Other Cardiovascular: No Chest Pain, No Palpitations, No Orthopnea, No Paroxysmal Noc. Dyspnea, No Edema, No Lt Headedness, No Other Respiratory: Cough; No Dry; Shortness of breath; No SOB with excertion, No Wheezing, No Hemoptysis, No Pleuritic Pain, No Sputum, No Other Gastrointestinal: No Nausea, No Vomiting, No Abdominal Pain, No Diarrhea, No Constipation, No Melena, No Hematochezia, No Other Genitourinary: No Dysuria, No Frequency, No Incontinence, No Hematuria, No Retention, No Other Musculoskeletal: No other, No neck pain, No shoulder pain, No arm pain, No back pain, No hand pain, No leg pain, No foot pain Skin: No Rash, No Lesions, No Jaundice, No Bruising, No Other Objective Vitals Vital Signs Date Time Temp Pulse Resp B/P (MAP) Pulse Ox O2 Delivery O2 Flow Rate FiO2 11/01/24 13:00 98.7 101 21 122/64 (83) 91 98.7 11/01/24 12:01 Nasal Cannula* 1 24 Intake/Output Intake and Output 11/01/24 07:00 Intake Total 1650 ml Balance 1650 ml Intake Oral 1250 ml IV Total 400 ml # Voids 4 Exam HEENT pupils are reactive Neck is supple CV is S1-S2 regular rate and rhythm Respiratory bite it expiratory rhonchi with decreased breath sound at bases GI positive bowel sound Extremity no edema 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 Medications Current Medications Medications Dose Ordered Sig/Ranjith Route Start Time Stop Time Status Last Admin Dose Admin Docusate Sodium 100 mg BIDPRN PRN PO 10/31/24 06:00 Acetaminophen 650 mg Q6HP PRN PO 10/31/24 06:00 11/01/24 14:09 650 MG Ondansetron HCl 4 mg Q4HP PRN IV 10/31/24 06:00 Enoxaparin Sodium 40 mg DAILY SC 10/31/24 10:00 10/31/24 10:05 40 MG Nitroglycerin 0.4 mg Q5MINP PRN SL 10/31/24 06:00 Morphine Sulfate 2 mg Q30M PRN IV 10/31/24 06:00 Albuterol 2.5 mg Q6HR NEB 10/31/24 06:00 11/01/24 12:01 2.5 MG Ipratropium [place] 0.5 mg Q6HR NEB 10/31/24 06:00 11/01/24 12:01 0.5 MG Nifedipine 30 mg DAILY PO 10/31/24 10:00 11/01/24 10:30 30 MG Guaifenesin/ Dextromethorphan 10 ml Q4HPRN PRN PO 10/31/24 06:00 11/01/24 10:30 10 ML Oseltamivir Phosphate 30 mg BID PO 11/01/24 10:00 11/05/24 10:01 11/01/24 10:31 30 MG Melatonin 5 mg HS PO 10/31/24 22:00 10/31/24 22:00 5 MG Laboratory Results Laboratory Tests 11/01/24 04:55 Chemistry Test 11/01/24 04:55 Calcium Level 9.5 mg/dL (8.7-10.4) Microbiology Microbiology Date/Time Source Procedure Growth Status 10/31/24 03:05 Blood Blood Culture - Preliminary NO GROWTH AFTER 24 HOURS OF INCUBATION. Resulted Assessment/Plan Assessment/Plan 69-YEAR-OLD FEMALE WITH A KNOWN HISTORY OF COPD, CHRONIC ACTIVE TOBACCO USE DISORDER INITIALLY PRESENTED TO THE HOSPITAL WITH THE INCREASING SHORTNESS A BREATH FOUND TO HAVE 1. ACUTE HYPOXIC RESPIRATORY FAILURE SECONDARY TO ACUTE COPD EXACERBATION 2. ACUTE COPD EXACERBATION 3. INFLUENZA A POSITIVE 4. CHRONIC ACTIVE TOBACCO USE DISORDER -continue med nebs, O2 supplementation, Tamiflu- Discharge plan Plan discussed with: Patient Date of Service: Nov 01, 2024 Billing Provider: CARLA ABDULLAHI MD Common Visit Codes: NOT BILLABLE CARLA ABDULLAHI MD Nov 01, 2024 16:38
--- NOTE | 2024-11-01 18:02 | DVHPN2 ---
Progress Note - Dictate Date Seen: Nov 01, 2024 Medical Necessity Reason Pt with a Central, PICC or Fol: No Subjective Patient seen and examined at bedside. Remains on supplemental oxygen Overnight events reviewed. vital signs Vital Sign Date Time Temp Pulse Resp B/P (MAP) Pulse Ox O2 Delivery O2 Flow Rate FiO2 11/01/24 13:00 98.7 101 21 122/64 (83) 91 98.7 11/01/24 12:01 Nasal Cannula* 1 24 Total Intake and Output 10/31/24 10/31/24 11/01/24 15:00 23:00 07:00 Intake Total 400 ml 350 ml 900 ml Balance 400 ml 350 ml 900 ml medications Current Medications Medications Dose Ordered Sig/Ranjith Route Start Time Stop Time Status Last Admin Dose Admin Docusate Sodium 100 mg BIDPRN PRN PO 10/31/24 06:00 Acetaminophen 650 mg Q6HP PRN PO 10/31/24 06:00 11/01/24 14:09 650 MG Ondansetron HCl 4 mg Q4HP PRN IV 10/31/24 06:00 Enoxaparin Sodium 40 mg DAILY SC 10/31/24 10:00 10/31/24 10:05 40 MG Nitroglycerin 0.4 mg Q5MINP PRN SL 10/31/24 06:00 Morphine Sulfate 2 mg Q30M PRN IV 10/31/24 06:00 Albuterol 2.5 mg Q6HR NEB 10/31/24 06:00 11/01/24 12:01 2.5 MG Ipratropium [place] 0.5 mg Q6HR NEB 10/31/24 06:00 11/01/24 12:01 0.5 MG Nifedipine 30 mg DAILY PO 10/31/24 10:00 11/01/24 10:30 30 MG Guaifenesin/ Dextromethorphan 10 ml Q4HPRN PRN PO 10/31/24 06:00 11/01/24 10:30 10 ML Oseltamivir Phosphate 30 mg BID PO 11/01/24 10:00 11/05/24 10:01 11/01/24 10:31 30 MG Melatonin 5 mg HS PO 10/31/24 22:00 10/31/24 22:00 5 MG Methylprednisolone Sodium Succinate 40 mg Q8HR IV 11/01/24 22:00 objective Gen.: Patient lying in bed in no apparent distress. On supplemental oxygen. Head: Normocephalic, atraumatic. Eyes: EOMI/PERRLA. Ears: Normal hearing. Normal anatomy. Neck/trachea: Trachea midline, supple. Nose: Normal external anatomy. Mouth: Moist mucous membranes. Chest: Decreased air entry bilaterally. No wheezing or rhonchi. Cardiovascular: Positive S1, positive S2. Regular rate and rhythm. Abdomen: Positive bowel sounds in all 4 quadrants. Soft, non-tender, non- distended. : Deferred. Rectal: Deferred. Skin: Warm, dry. Intact. Extremities: 2+ radial pulses bilaterally. No lower extremity edema. Neuro: Awake, alert, oriented x3. No gross motor or sensory deficits. Cranial nerves II through XII intact. Gait not assessed. laboratory and microbiology Laboratory Tests 11/01/24 04:55 Test 11/01/24 04:55 Range/Units Serum Glucose 84 74-106 mg/dL Assessment/Plan Impression: Acute on chronic hypoxic respiratory failure COPD exacerbation Influenza A positive Hypertension Nicotine dependence Events: Remains on supplemental oxygen, 2 LPM NC Taper O2 as tolerated Continue Tamiflu course Continue bronchodilators Continue steroids Antitussive for cough Blood cultures show no growth for 24 hours. Labs and imaging reviewed. Rest of plan as noted below. Plan: Supplemental oxygen Titrate to keep O2 sats above 92%. Start Tamiflu course Continue bronchodilators. Continue steroids Monitor blood pressure Monitor renal function. Monitor electrolytes. Supplement as necessary. Monitor ins and outs. DVT prophylaxis. Prognosis: Poor given patient's multiple co-morbidities. Rest of plan per hospitalist and other consultants. Thank you, Rhett Rivero NP, for allowing me to participate in this patient's care. Further recommendations will depend on the patient's clinical course. Please do not hesitate to contact me if you have any questions or concerns. This medical document was created using an electronic medical record system with [employer] dictation system. Although these documentations are being carefully reviewed, there may still be some phonetic and typographical changes. The errors are purely typographical, due to imperfection on the software program, and do not reflect any compromise in the patient's medical care. Plan discussed with: Patient, Other (MICHELLE High) TAYLOR MEDRANO MD Nov 01, 2024 18:02
[2024-11-01] MEDS: methylPREDNISolone SOD SUCC 40 MG/ML VL IV SCH (21:40)
[2024-11-02] VITALS (16 sets, daily range): BP systolic 93–146; BP diastolic 50–80; PULSE 65–105; RESP 12–21; TEMP 97.6–98.7; O2SAT 85–100
[2024-11-02 07:19] LABS: Chloride 101 mmol/L (98-107); Potassium 3.6 mmol/L (3.5-5.1); Sodium 137 mmol/L (136-145)
[2024-11-02 07:20] LABS: Anion Gap 7 (5-15); Calcium 9.9 mg/dL (8.7-10.4); Carbon Dioxide 29 mmol/L (20-31)
[2024-11-02 07:25] LABS: Blood Urea Nitrogen 9 mg/dL (9-23)
[2024-11-02 07:35] LABS: Glucose 142 mg/dL (74-106)
[2024-11-02 08:03] LABS: Basophils # (auto) 0 10 ^3/uL (0-0.2); Eosinophils # (auto) 0 10 ^3/uL (0-0.8); Eosinophils % (auto) 0.1 % (0.0-7.0); Hemoglobin 13.6 g/dL (12.2-16.2); Lymphocytes # (auto) 0.6 10 ^3/uL (0.4-5.4); Monocytes # (auto) 0.2 10 ^3/uL (0-1.3); Red Cell Distribution Width 14.1 % (11.8-14.3)
[2024-11-02 08:06] LABS: Basophils % (auto) 0.5 % (0.0-2.0); Hematocrit 42.4 % (36.0-46.0); Lymphocytes % (auto) 20.3 % (10.0-50.0); Mean Corpuscular Hemoglobin 26.6 pg (28.0-32.0); Monocytes % (auto) 5.1 % (0.0-12.0); Neutrophils # (auto) 2.2 10 ^3/uL (1.6-8.6); Nucleated Red Blood Cells % 0.2 %; Platelet Count (auto) 268 10^3/uL (140-450); Red Blood Cells 5.11 10^6/uL (4.0-5.20)
[2024-11-02 14:18] LABS: Base Excess 5.2 mmol/L (-2.0-3.0)
[2024-11-02] MEDS: NICOTINE 14 MG/24HR TOPICAL PATCH TD ONE (15:31)
[2024-11-02] MEDS ORDERED: TAMIF30 PO (16:30)
[2024-11-02] MEDS ORDERED: IPR002IS NEB (16:30)
[2024-11-02] MEDS ORDERED: METH4PAK PO (16:30)
[2024-11-02] MEDS ORDERED: ALB5IS NEB (16:30)
[2024-11-02] MEDS ORDERED: NEBUMIS40 XX (16:33)
--- NOTE | 2024-11-02 16:34 | DVHDS2 ---
Discharge Summary Date of Admission Oct 31, 2024 at 05:47 Date of Discharge: Nov 02, 2024 Labs/Diagnostic Data: Laboratory Results Test 11/02/24 14:09 11/02/24 05:43 11/01/24 04:55 10/31/24 05:48 Blood Gas Specimen Type Arterial Blood Gas Sample Site Right radial Blood Gas Patient Temperature 37.0 Arterial Blood Date Drawn [id number] Arterial Blood pH 7.413 (7.350-7.450) Arterial Blood Partial Pressure CO2 49.5 mmHg (32.0-45.0) Arterial Blood Partial Pressure O2 48.3 mmHg (83.0-108.0) Arterial Blood HCO3 30.9 mmol/L (21.0-28.0) Arterial Blood Oxygen Saturation 82.3 % (94.0-98.0) Arterial Blood Base Excess 5.2 mmol/L (-2.0-3.0) Arterial Blood Oxyhemoglobin 81.1 % (94.0-98.0) Arterial Blood Carboxyhemoglobin 1.0 % (0.5-1.5) Arterial Blood Methemoglobin 0.5 % (0.0-1.5) Handy Test Yes Blood Gas Total Hemoglobin 14.30 g/dL (12.0-16.0) Blood Gas Modality Room air FiO2 % 21.0 Blood Gas Critical Value Read Back Yes Blood Gas Notified Whom Michael blanco md Blood Gas Notified Time [id number] Blood Gas Notified By Shabana jeffries rrt White Blood Count 3.0 10^3/uL (4.4-10.8) Red Blood Count 5.11 10^6/uL (4.0-5.20) Hemoglobin 13.6 g/dL (12.2-16.2) Hematocrit 42.4 % (36.0-46.0) Mean Corpuscular Volume 83.0 fL (80.0-100.0) Mean Corpuscular Hemoglobin 26.6 pg (28.0-32.0) Mean Corpuscular Hemoglobin Concent 32.0 g/dL (32.0-36.0) Red Cell Distribution Width 14.1 % (11.8-14.3) Platelet Count 268 10^3/uL (140-450) Mean Platelet Volume 8.0 fL (6.9-10.8) Neutrophils (%) (Auto) 74.0 % (37.0-80.0) Lymphocytes (%) (Auto) 20.3 % (10.0-50.0) Monocytes (%) (Auto) 5.1 % (0.0-12.0) Eosinophils (%) (Auto) 0.1 % (0.0-7.0) Basophils (%) (Auto) 0.5 % (0.0-2.0) Neutrophils # (Auto) 2.2 10 ^3/uL (1.6-8.6) Lymphocytes # (Auto) 0.6 10 ^3/uL (0.4-5.4) Monocytes # (Auto) 0.2 10 ^3/uL (0-1.3) Eosinophils # (Auto) 0 10 ^3/uL (0-0.8) Basophils # (Auto) 0 10 ^3/uL (0-0.2) Nucleated Red Blood Cells 0.2 % Sodium Level 137 mmol/L (136-145) Potassium Level 3.6 mmol/L (3.5-5.1) Chloride Level 101 mmol/L (98-107) Carbon Dioxide Level 29 mmol/L (20-31) Anion Gap 7 (5-15) Blood Urea Nitrogen 9 mg/dL (9-23) Creatinine 0.75 mg/dL (0.550-1.02) Glomerular Filtration Rate Calc 86 mL/min (>90) BUN/Creatinine Ratio 12.0 (10.0-20.0) Serum Glucose 142 mg/dL (74-106) Calcium Level 9.9 mg/dL (8.7-10.4) Differential Total Cells Counted 100.0 (100) Neutrophils % (Manual) 62 (37.0-80.0) Band Neutrophils % (Manual) 3 Lymphocytes % (Manual) 22 (10.0-50.0) Monocytes % (Manual) 13 (0-12) Eosinophils % (Manual) 0 (0-7) Basophils % (Manual) 0 (0.0-2.0) Metamyelocytes % (manual) 0 Myelocytes % (Manual) 0 Promyelocytes % (Manual) 0 Blast Cells % (Manual) 0 Reactive Lymphocytes 0 Platelet Estimate Adequate Red Blood Cell Morphology Normal Lactic Acid Level 1.2 mmol/L (0.4-2.0) Test 10/31/24 03:55 10/31/24 03:05 10/31/24 03:00 Troponin I High Sensitivity 5 ng/L (</=34) Influenza Type A Antigen Positive (Negative) Influenza Type B Antigen Negative (Negative) SARS-CoV-2 Antigen (Rapid) Negative (NEGATIVE) Magnesium Level 2.0 mg/dL (1.6-2.6) Total Bilirubin 0.2 mg/dL (0.2-1.0) Aspartate Amino Transferase (AST) 30 U/L (13-40) Alanine Aminotransferase (ALT) 15 U/L (7-40) Alkaline Phosphatase 177 U/L (46-116) B-Type Natriuretic Peptide 277.88 pg/mL (0-100) Total Protein 7.8 g/dL (5.7-8.2) Albumin 4.7 g/dL (3.2-4.8) Other Laboratory Tests 11/02/24 05:43 Brief Hx & Hospital Course: 69-YEAR-OLD FEMALE WITH A KNOWN HISTORY OF COPD, CHRONIC ACTIVE TOBACCO USE DISORDER INITIALLY PRESENTED TO THE HOSPITAL WITH THE INCREASING SHORTNESS A BREATH FOUND TO HAVE acute hypoxic respiratory failure secondary to acute COPD exacerbation as well as influenza A positive. Patient was treated with the med nebs O2 supplementation and Tamiflu. Patient was given tobacco cessation counseling. Dr. Blanco cleared the patient to be discharged. Patient does qualify for home oxygen and nebulizer. Patient will be give rest of the Tamiflu doses as well as nebulizers and breathing treatment for home. Patient already has a inhaler at home. Tobacco cessation counseling has been discussed. ancillary services manager consult for home health home O2 arrangement. Condition at Discharge: Stable Final Diagnosis/Problems List 1. ACUTE HYPOXIC RESPIRATORY FAILURE SECONDARY TO ACUTE COPD EXACERBATION 2. ACUTE COPD EXACERBATION 3. INFLUENZA A POSITIVE 4. CHRONIC ACTIVE TOBACCO USE DISORDER Discharge Disposition: Home with Health Services SNF Discharge Will this Physician continue t: No Discharge Instruct/Medications Diet: Cardiac 2g Na,low cholest Activity: No Restrictions, As Tolerated Follow Up/Referral: Follow up with the PCP and Dr. Blanco in 1-2 weeks Medications: Medication as prescribed including Medrol Dosepak and Tamiflu and nebulizer with breathing treatments. Discharge Statement: "Patient was advised to return to the ER or call 911 if any headaches, dizziness, shortness of breath, chest pain, abdominal pain, bleeding, fevers, or worsening of medical condition. Patient was counseled about treatment plan, medications, possible side effects, patientverbalized understanding. All questions were answered to the best of my ability. This discharge took greater then 30 minutes in planning, reviewing documentation, counseling the patient, and discussing with other team members." ASSESSMENT ASSESSMENT Assessment 69-YEAR-OLD FEMALE WITH A KNOWN HISTORY OF COPD, CHRONIC ACTIVE TOBACCO USE DISORDER INITIALLY PRESENTED TO THE HOSPITAL WITH THE INCREASING SHORTNESS A BREATH FOUND TO HAVE 1. ACUTE HYPOXIC RESPIRATORY FAILURE SECONDARY TO ACUTE COPD EXACERBATION 2. ACUTE COPD EXACERBATION 3. INFLUENZA A POSITIVE 4. CHRONIC ACTIVE TOBACCO USE DISORDER Date of Service: Nov 02, 2024 Billing Provider: CARLA ABDULLAHI MD Common Visit Codes: NOT BILLABLE CARLA ABDULLAHI MD Nov 02, 2024 16:34
--- NOTE | 2024-11-02 21:12 | DVHPN2 ---
Progress Note - Dictate Date Seen: Nov 02, 2024 Medical Necessity Reason Pt with a Central, PICC or Fol: No Subjective Patient seen and examined at bedside. Remains on supplemental oxygen Overnight events reviewed. vital signs Vital Sign Date Time Temp Pulse Resp B/P (MAP) Pulse Ox O2 Delivery O2 Flow Rate FiO2 11/02/24 20:00 100 11/02/24 20:00 18 Nasal Cannula* 2 28 11/02/24 19:43 98 11/02/24 16:50 98.3 128/72 (90) 98.3 Total Intake and Output 11/01/24 11/01/24 11/02/24 15:00 23:00 07:00 Intake Total 1200 ml 700 ml Output Total 1600 ml Balance -400 ml 700 ml medications Current Medications Medications Dose Ordered Sig/Ranjith Route Start Time Stop Time Status Last Admin Dose Admin Docusate Sodium 100 mg BIDPRN PRN PO 10/31/24 06:00 Acetaminophen 650 mg Q6HP PRN PO 10/31/24 06:00 11/01/24 14:09 650 MG Ondansetron HCl 4 mg Q4HP PRN IV 10/31/24 06:00 Enoxaparin Sodium 40 mg DAILY SC 10/31/24 10:00 11/02/24 08:52 40 MG Nitroglycerin 0.4 mg Q5MINP PRN SL 10/31/24 06:00 Morphine Sulfate 2 mg Q30M PRN IV 10/31/24 06:00 Albuterol 2.5 mg Q6HR NEB 10/31/24 06:00 11/02/24 19:37 2.5 MG Ipratropium [place] 0.5 mg Q6HR NEB 10/31/24 06:00 11/02/24 19:37 0.5 MG Nifedipine 30 mg DAILY PO 10/31/24 10:00 11/02/24 08:49 30 MG Guaifenesin/ Dextromethorphan 10 ml Q4HPRN PRN PO 10/31/24 06:00 11/01/24 10:30 10 ML Oseltamivir Phosphate 30 mg BID PO 11/01/24 10:00 11/05/24 10:01 11/02/24 08:49 30 MG Melatonin 5 mg HS PO 10/31/24 22:00 11/01/24 21:40 5 MG Methylprednisolone Sodium Succinate 40 mg Q8HR IV 11/01/24 22:00 11/02/24 15:30 40 MG objective Gen.: Patient lying in bed in no apparent distress. On supplemental oxygen. Head: Normocephalic, atraumatic. Eyes: EOMI/PERRLA. Ears: Normal hearing. Normal anatomy. Neck/trachea: Trachea midline, supple. Nose: Normal external anatomy. Mouth: Moist mucous membranes. Chest: Decreased air entry bilaterally. No wheezing or rhonchi. Cardiovascular: Positive S1, positive S2. Regular rate and rhythm. Abdomen: Positive bowel sounds in all 4 quadrants. Soft, non-tender, non- distended. : Deferred. Rectal: Deferred. Skin: Warm, dry. Intact. Extremities: 2+ radial pulses bilaterally. No lower extremity edema. Neuro: Awake, alert, oriented x3. No gross motor or sensory deficits. Cranial nerves II through XII intact. Gait not assessed. laboratory and microbiology Laboratory Tests 11/02/24 05:43 Test 11/02/24 05:43 Range/Units Serum Glucose 142 H 74-106 mg/dL Assessment/Plan Impression: Acute on chronic hypoxic respiratory failure COPD exacerbation Influenza A positive Hypertension Nicotine dependence Events: Remains on supplemental oxygen, 2 LPM NC Taper O2 as tolerated Continue Tamiflu course Continue bronchodilators Continue IV steroids Antitussive for cough Blood cultures show no growth for 48 hours. Patient is stable from pulmonary standpoint for discharge Follow up in Pulmonary Clinic in 2-3 weeks Labs and imaging reviewed. Rest of plan as noted below. Plan: Supplemental oxygen Titrate to keep O2 sats above 92%. Start Tamiflu course Continue bronchodilators. Continue steroids Monitor blood pressure Monitor renal function. Monitor electrolytes. Supplement as necessary. Monitor ins and outs. DVT prophylaxis. Prognosis: Poor given patient's multiple co-morbidities. Rest of plan per hospitalist and other consultants. Thank you, Rhett Rivero NP, for allowing me to participate in this patient's care. Further recommendations will depend on the patient's clinical course. Please do not hesitate to contact me if you have any questions or concerns. This medical document was created using an electronic medical record system with [employer] system. Although these documentations are being carefully reviewed, there may still be some phonetic and typographical changes. The errors are purely typographical, due to imperfection on the software program, and do not reflect any compromise in the patient's medical care. Plan discussed with: Patient, Other (RN Sera) TAYLOR MEDRANO MD Nov 02, 2024 21:12
[2024-11-03] VITALS (9 sets, daily range): BP systolic 113–135; BP diastolic 50–86; PULSE 97–104; RESP 16–20; TEMP 97.9–98.2; O2SAT 92–100
[2024-11-03 06:55] LABS: Basophils # (auto) 0 10 ^3/uL (0-0.2); Eosinophils # (auto) 0 10 ^3/uL (0-0.8); Monocytes # (auto) 0.6 10 ^3/uL (0-1.3); Nucleated Red Blood Cells % 0.2 %; White Blood Cell 5.7 10^3/uL (4.4-10.8)
[2024-11-03 06:58] LABS: Hematocrit 39.7 % (36.0-46.0); Hemoglobin 12.7 g/dL (12.2-16.2); Lymphocytes % (auto) 17.5 % (10.0-50.0); Mean Corpuscular Hemoglobin 26.5 pg (28.0-32.0); Monocytes % (auto) 10.9 % (0.0-12.0); Neutrophils # (auto) 4.1 10 ^3/uL (1.6-8.6); Neutrophils % (auto) 71.6 % (37.0-80.0); Platelet Count (auto) 261 10^3/uL (140-450); Red Blood Cells 4.78 10^6/uL (4.0-5.20); Red Cell Distribution Width 13.9 % (11.8-14.3)
[2024-11-03 07:17] LABS: Anion Gap 6 (5-15); Carbon Dioxide 30 mmol/L (20-31); Chloride 103 mmol/L (98-107); Sodium 139 mmol/L (136-145)
[2024-11-03 07:18] LABS: Calcium 9.9 mg/dL (8.7-10.4)
[2024-11-03 07:23] LABS: BUN/Creatinine Ratio 22.4 (10.0-20.0); Blood Urea Nitrogen 15 mg/dL (9-23)
[2024-11-03 07:28] LABS: Glucose 129 mg/dL (74-106)
--- NOTE | 2024-11-03 23:35 | DVHPN2 ---
Progress Note - Dictate Date Seen: Nov 03, 2024 Medical Necessity Reason Pt with a Central, PICC or Fol: No Subjective Patient seen and examined at bedside. Remains on supplemental oxygen Overnight events reviewed. vital signs Vital Sign Date Time Temp Pulse Resp B/P (MAP) Pulse Ox O2 Delivery O2 Flow Rate FiO2 11/03/24 10:00 94 Nasal Cannula* 2 28 11/03/24 09:48 113/62 11/03/24 09:00 98.2 98 20 98.2 Total Intake and Output 11/02/24 11/02/24 11/03/24 15:00 23:00 07:00 Intake Total 800 ml 300 ml Output Total 500 ml Balance 800 ml -200 ml objective Gen.: Patient lying in bed in no apparent distress. On supplemental oxygen. Head: Normocephalic, atraumatic. Eyes: EOMI/PERRLA. Ears: Normal hearing. Normal anatomy. Neck/trachea: Trachea midline, supple. Nose: Normal external anatomy. Mouth: Moist mucous membranes. Chest: Decreased air entry bilaterally. No wheezing or rhonchi. Cardiovascular: Positive S1, positive S2. Regular rate and rhythm. Abdomen: Positive bowel sounds in all 4 quadrants. Soft, non-tender, non- distended. : Deferred. Rectal: Deferred. Skin: Warm, dry. Intact. Extremities: 2+ radial pulses bilaterally. No lower extremity edema. Neuro: Awake, alert, oriented x3. No gross motor or sensory deficits. Cranial nerves II through XII intact. Gait not assessed. laboratory and microbiology Laboratory Tests 11/03/24 06:06 Test 11/03/24 06:06 Range/Units Serum Glucose 129 H 74-106 mg/dL Assessment/Plan Impression: Acute on chronic hypoxic respiratory failure COPD exacerbation Influenza A positive Hypertension Nicotine dependence Events: Remains on supplemental oxygen, 2 LPM NC Taper O2 as tolerated Continue Tamiflu course Continue bronchodilators Continue IV steroids Antitussive for cough Blood cultures show no growth for 48 hours. Patient is stable from pulmonary standpoint for discharge Follow up in Pulmonary Clinic in 2-3 weeks Labs and imaging reviewed. Rest of plan as noted below. Plan: Supplemental oxygen Titrate to keep O2 sats above 92%. Start Tamiflu course Continue bronchodilators. Continue steroids Monitor blood pressure Monitor renal function. Monitor electrolytes. Supplement as necessary. Monitor ins and outs. DVT prophylaxis. Prognosis: Poor given patient's multiple co-morbidities. Rest of plan per hospitalist and other consultants. Thank you, Rhett Rivero NP, for allowing me to participate in this patient's care. Further recommendations will depend on the patient's clinical course. Please do not hesitate to contact me if you have any questions or concerns. This medical document was created using an electronic medical record system with [employer] dictation system. Although these documentations are being carefully reviewed, there may still be some phonetic and typographical changes. The errors are purely typographical, due to imperfection on the software program, and do not reflect any compromise in the patient's medical care. TAYLOR MEDRANO MD Nov 03, 2024 23:35
== END 2024-11-03 12:00 | disposition home or self-care (01) | DRG 193 ==
LOC: EDBD 02:42 → ER 02:42 → TELE 05:47 → TELE-CENTR 05:56
PROVIDERS: ADMIT Internal Medicine; ATTEND Internal Medicine
DX: J10.1 Influenza due to other identified influenza virus with other respiratory manifestations (principal); J96.01 Acute respiratory failure with hypoxia; J44.1 Chronic obstructive pulmonary disease with (acute) exacerbation; I10 Essential (primary) hypertension; Z20.822 Contact with and (suspected) exposure to COVID-19; D64.9 Anemia, unspecified; F17.210 Nicotine dependence, cigarettes, uncomplicated; I25.10 Atherosclerotic heart disease of native coronary artery without angina pectoris; Z82.49 Family history of ischemic heart disease and other diseases of the circulatory system; Z80.1 Family history of malignant neoplasm of trachea, bronchus and lung; Z79.891 Long term (current) use of opiate analgesic; Z79.899 Other long term (current) drug therapy; Z71.6 Tobacco abuse counseling
CPT/HCPCS: 36415; 36600; 71045; 80048; 80053; 82805; 83605; 83735; 83880; 84484; 85007; 85025; 85027; 87040; 87426; 87804; 94640; 99291; G0378; G9035